=== PATIENT | female | born 1945 | race Caucasian/White ===

== ENCOUNTER → 2017-11-21 | Outpatient (CLI) | payer MEDICARE, OTHER ==
[~2017-11-21] MED LIST: ATOR10TA65 PO; BACI1CAP4 PO; CHOL100052 PO; DOCU-416 PO; DYA PO; EST3 PO; HYDR-317 PO; HYDR12.556 PO; IBUP200C71 PO; IBUP600T22 PO; MULT-912 PO; MULT-977 PO; OXYB10TA21 PO; PHEN200T32 PO; TAMS0.4C25 PO
--- NOTE | 2017-11-22 14:00 | RADIOLOGY IMAGING REPORT ---
FACILITY: [facility] [place] PATIENT NAME: STORM TOLENTINO : [id number] MR: [id number] V: [id number] EXAM DATE: ORDERING PHYSICIAN: YEYO SAUCEDA TECHNOLOGIST: Lucina Kebede PROCEDURE:BILATERAL DIGITAL SCREENING MAMMOGRAM WITH CAD ASSISTED INTERPRETATION & 3D TOMOSYNTHESIS COMPARISON:Prior mammograms 11/17/16, 11/16/15, 11/12/14, 11/10/13, 11/08/12, 11/08/11. INDICATIONS:screening FINDINGS: Moderately heterogeneous fibroglandular tissue is seen throughout the breasts. The parenchymal pattern has remained stable allowing for difference in mammographic technique & patient positioning. There is no evidence of malignant appearing mass, malignant appearing calcifications or other secondary sign of malignancy in either breast. DIAGNOSTIC CATEGORY 1--NEGATIVE. RECOMMENDATIONS: ROUTINE MAMMOGRAM AND CLINICAL EVALUATION. IMPRESSION: BIRADS 1: Negative No significant abnormality is seen. Dictated by: Franny Villalta M.D. on 11/21/2017 at 16:57 Transcribed by: FELISHA on 11/22/2017 at 8:18 Approved by: Franny Villalta M.D. on 11/22/2017 at 13:59 [facility]
== END ==
LOC: MAMO 01:05
PROVIDERS: ATTEND Obstetrics & Gynecology
DX: Z12.31 Encounter for screening mammogram for malignant neoplasm of breast (principal)
CPT/HCPCS: 77063; 77067

== ENCOUNTER → 2018-05-28 | Outpatient (CLI) | payer MEDICARE, OTHER ==
[~2018-05-28] MED LIST changes: +IBUP-136 PO; -IBUP200C71 PO
--- NOTE | 2018-05-28 15:32 | RADIOLOGY IMAGING REPORT ---
FACILITY: [facility] [place] PATIENT NAME: Debbie Serna : 1945 MR: [id number] V: [id number] EXAM DATE: ORDERING PHYSICIAN: JANNA MATUTE TECHNOLOGIST: Location: [facility] Patient: Debbie Serna : 1945 Visit/Account:[id number] Date of Sevice: 05/28/2018 ABDOMEN PELVIS ESWL CYSTO W/O HISTORY: History of kidney stones TECHNIQUE: Axial images acquired through the abdomen/pelvis. Coronal and sagittal reformatting also performed. No IV contrast administered. COMPARISON: April 05, 2017 FINDINGS: Visualized lung bases: Negative. Hepatobiliary: Small calcification medial right lobe the liver has remained unchanged. Multiple small hepatic hypodensities remain stable likely representing cysts the largest is in the me dial right lobe measuring approximately 2.2 cm in diameter Spleen: Accessory splenule Adrenals: Negative. Pancreas: Negative. Kidneys ureters and bladder: There are two contiguous calculi lower pole calyx of the right kidney me asuring two and 3 mm. To 1 mm nonobstructing calculi are present upper pole calyces of the left kidn ey and a 2 mm calcification mid pole calyx of the left kidney. No evidence of hydronephrosis or hydr oureter bladder is mostly decompressed separate not ideally evaluated Genitalia: Hysterectomy GI: Moderate amount of fecal material again seen throughout colon which can be seen with constipatio n Vessels/spaces/nodes: Moderate vascular calcifications about the abdomen and pelvis Bones/soft tissues: Spondylotic changes lumbar spine. No aggressive appearing bone lesions are seen Additional findings: None pertinent. IMPRESSION: There are nonobstructing calculi seen in both renal collecting systems as described above Moderate amount of fecal material throughout colon which can seen with constipation Additional chronic findings as described Report Dictated By: Franny Villalta MD at 05/28/2018 3:21 PM Report E-Signed By: Franny Villalta MD at 05/28/2018 3:28 PM COLINN:MARTHA
== END ==
LOC: CT 04-11 12:18
PROVIDERS: ATTEND Urology
DX: N20.0 Calculus of kidney (principal); K59.00 Constipation, unspecified; M47.896 Other spondylosis, lumbar region; I25.10 Atherosclerotic heart disease of native coronary artery without angina pectoris
CPT/HCPCS: 74176

== ENCOUNTER → 2019-01-14 | Outpatient (CLI) | payer MEDICARE, OTHER ==
--- NOTE | 2019-01-15 11:11 | RADIOLOGY IMAGING REPORT ---
FACILITY: [facility] PATIENT NAME: STORM TOLENTINO : [id number] MR: [id number] V: [id number] EXAM DATE: [id number] ORDERING PHYSICIAN: KARL FAIRBANKS TECHNOLOGIST: Marquita Chow PROCEDURE: BILATERAL DIGITAL SCREENING MAMMOGRAM WITH CAD ASSISTED INTERPRETATION & 3D TOMOSYNTHESIS REASON FOR STUDY: Screening. FAMILY HISTORY OF BREAST CANCER: None. BREAST PROCEDURES/TREATMENTS: None. COMPARISON: Prior mammograms 11/21/17, 11/17/16, 11/16/15, 11/12/14, 11/10/13, 11/08/12. VIEWS OBTAINED: 2D & 3D full field CC & MLO. BREAST DENSITY: The breasts are heterogeneously dense which can obscure small masses. MAMMOGRAM FINDINGS: The parenchymal pattern has remained stable allowing for difference in mammographic technique & patient positioning. IMPRESSION: BIRADS 1: Negative. DIAGNOSTIC CATEGORY 1--NEGATIVE. RECOMMENDATIONS: ROUTINE MAMMOGRAM AND CLINICAL EVALUATION. Dictated by: Franny Villalta M.D. on 01/14/2019 at 17:42 Transcribed by: FELISHA on 01/15/2019 at 8:51 Approved by: Franny Villalta M.D. on 01/15/2019 at 11:10 [facility]
== END ==
LOC: MAMO 01:00
PROVIDERS: ATTEND Physician Assistant
DX: Z12.31 Encounter for screening mammogram for malignant neoplasm of breast (principal)
CPT/HCPCS: 77063; 77067